=== PATIENT | female | born 1995 | race Caucasian/White ===

== ENCOUNTER 2016-12-16 18:21 | Emergency (ER) | payer OTHER ==
[2016-12-16 18:40] VITALS: PULSE 72; RESP 16; TEMP 97.3
--- NOTE | 2016-12-16 19:18 | EDPHY ---
H & P Stated Complaint: pt twisted left wrist trying to break up dogs Time Seen by Provider: 12/16/16 19:12 HPI/ROS: CHIEF COMPLAINT: Left wrist pain HISTORY OF PRESENT ILLNESS: The patient is a 21-year-old female who comes to the emergency department complaining of pain at the distal left radius. No snuffbox tenderness. No hand pain. No ulnar side pain. She states that she was holding her dog's collar when it jumped away and jerked her wrist. REVIEW OF SYSTEMS: Constitutional: denies: chills, fever, recent illness, recent injury EENTM: denies: blurred vision, double vision, nose congestion Respiratory: denies: cough, shortness of breath Cardiac: denies: chest pain, irregular heart rate, lightheadedness, palpitations Gastrointestinal/Abdominal: denies: abdominal pain, diarrhea, nausea, vomiting, blood streaked stools Genitourinary: denies: dysuria, frequency, hematuria, pain Musculoskeletal: See HPI Skin: denies: lesions, rash, jaundice, bruising Neurological: denies: headache, numbness, paresthesia, tingling, dizziness, weakness Hematologic/Lymphatic: denies: blood clots, easy bleeding, easy bruising Immunologic/allergic: denies: HIV/AIDS, transplant EXAM: GENERAL: Well-appearing, well-nourished and in no acute distress. HEAD: Atraumatic, normocephalic. EYES: Pupils equal round and reactive to light, extraocular movements intact, sclera anicteric, conjunctiva are normal. ENT: TMs normal, nares patent, oropharynx clear without exudates. Moist mucous membranes. NECK: Normal range of motion, supple without lymphadenopathy or JVD. LUNGS: Breath sounds clear to auscultation bilaterally and equal. No wheezes rales or rhonchi. HEART: Regular rate and rhythm without murmurs, rubs or gallops. ABDOMEN: Soft, nontender, normoactive bowel sounds. No guarding, no rebound. No masses appreciated. BACK: No CVA tenderness, no spinal tenderness, step-offs or deformities EXTREMITIES: Pain at the distal radius, no snuffbox tenderness, normal pulses sensation and hand java engineer distally. NEUROLOGICAL: Cranial nerves II through XII grossly intact. Normal speech, normal gait. 5/5 strength, normal movement in all extremities, normal sensation PSYCH: Normal mood, normal affect. SKIN: Warm, dry, normal turgor, no visible rashes or lesions. Source: Patient Exam Limitations: No limitations - Personal History LMP (Females 10-55): 22-28 Days Ago Current Tetanus Diphtheria and Acellular Pertussis (TDAP): Yes - Medical/Surgical History Hx Asthma: No Hx Chronic Respiratory Disease: No Hx Diabetes: No Hx Cardiac Disease: No Hx Renal Disease: No Hx Cirrhosis: No Hx Alcoholism: No Hx HIV/AIDS: No Hx Splenectomy or Spleen Trauma: No Other PMH: ORTHO SURGERIES/ENROLLED IN PT FOR BILATERAL ANKLES - Family History Significant Family History: No pertinent family hx - Social History Smoking Status: Never smoked Alcohol Use: Sober Drug Use: None Constitutional: Initial Vital Signs Temperature (C) 36.3 C 12/16/16 18:35 Heart Rate 72 12/16/16 18:35 Respiratory Rate 16 12/16/16 18:35 Blood Pressure 118/73 12/16/16 18:35 O2 Sat (%) 94 12/16/16 18:35 O2 Delivery Mode Room Air Allergies/Adverse Reactions: No Known Allergies Allergy (Unverified 12/16/16 18:40) Home Medications: Medication Instructions Recorded NO HOME MEDS 08/10/09 Medical Decision Making - Diagnostics Imaging Results: Imaging Impressions Wrist X-Ray 12/16/16 19:04 Impression: Any symptoms related to the distal radial ulnar joint? If indicated , views of the opposite side might be useful to look for symmetry. Imaging: Discussed imaging studies w/ scallop cutter Radiologist Procedures: Procedure: Splint placement. A Velcro wrist splint was applied. After application of the splint I returned and re-examined the patient. The splint was adequately immobilizing the joint and distal to the splint the patient's circulation and sensation was intact. ED Course/Re-evaluation: We discussed her x-ray results. She does have some mild tenderness between her distal radius and ulnar. I will place her in a Velcro splint and have her follow up with Orthopedics for further management. She understands and agrees with this plan. Differential Diagnosis: Partial list of the Differential diagnosis considered include but were not limited to; fracture, tendon injury and although unlikely based on the history and physical exam, I also considered vascular injury, nerve injury, infection. I discussed these differential diagnoses and the plan with the patient as well as the usual and expected course. The patient understands that the diagnosis is provisional and that in medicine we are not always correct and that further workup is often warranted. Usual and customary warnings were given. All of the patient's questions were answered. The patient was instructed to return to the emergency department should the symptoms at all worsen or return, otherwise to followup with the physician as we discussed. Departure - Departure Disposition: Home, Routine, Self-Care Clinical Impression: Wrist pain, left Condition: Fair Instructions: Wrist Injury (ED) Referrals: Phoebe Randolph MD [Primary Care Provider] - As per Instructions Eduardo Oneil MD [Medical Doctor] - As per Instructions
[2016-12-16 20:07] VITALS: BP 128/72; O2SAT 98
== END 2016-12-16 19:57 | disposition home or self-care (01) ==
LOC: CED 18:21
DX: S69.92XA Unspecified injury of left wrist, hand and finger(s), initial encounter (principal); X58.XXXA Exposure to other specified factors, initial encounter; Y92.009 Unspecified place in unspecified non-institutional (private) residence as the place of occurrence of the external cause
CPT/HCPCS: 73110-PO; L3807